=== PATIENT | female | born 1985 | race Caucasian/White ===

== ENCOUNTER 2019-03-09 06:58 | Day surgery (SDC) | payer OTHER ==
[~2019-03-09] VITALS: Ht 160 cm; Wt 81.6 kg
[2019-03-09] MEDS ORDERED: GLYCOPYRROLATE 0.2 MG/ML VIAL ONE (10:38)
[2019-03-09] MEDS ORDERED: NEOSTIGMINE 1:1000 10 MG/10 ML VIAL ONE (10:38)
[2019-03-09] MEDS ORDERED: ONDANSETRON 4 MG/2 ML VIAL ONE (10:38)
[2019-03-09] MEDS ORDERED: PROPOFOL 200 MG/20 ML VIAL IV ONE (10:38)
[2019-03-09] MEDS ORDERED: DEXAMETHASONE 4 MG/ML VIAL ONE (10:38)
[2019-03-09] MEDS ORDERED: LIDOCAINE 2% 100 MG/5 ML SYR IVP ONE (10:38)
[2019-03-09] MEDS ORDERED: SUCCINYLCHOLINE CHLORIDE 200 MG/10 ML VIAL IVP ONE (10:38)
[2019-03-09] MEDS ORDERED: DESFLURANE 240 ML BTL INH ONE (10:38)
[2019-03-09] MEDS ORDERED: KETOROLAC 30 MG/ML VIAL ONE (10:38)
[2019-03-09] MEDS ORDERED: ROCURONIUM 50 MG/5 ML VIAL IV ONE (10:38)
[2019-03-09] MEDS ORDERED: fentaNYL 0.05 MG/ML VIAL ONE (10:46)
[2019-03-09] MEDS ORDERED: MIDAZOLAM 2 MG/2 ML VIAL ONE (10:46)
[2019-03-09] MEDS ORDERED: BUPIVACAINE-MPF/EPI 0.25% 30 ML VIAL INJ ONE (10:52)
[2019-03-09] MEDS ORDERED: HYDROmorphone 1 MG/ML AMP IVP PRN (11:15)
[2019-03-09] MEDS ORDERED: ONDANSETRON 4 MG/2 ML VIAL IVP PRN (11:15)
== END 2019-03-09 13:45 | disposition home or self-care (01) ==
LOC: MDS 06:58 → MMU 06:59 → MDS 13:45
PROVIDERS: ATTEND Obstetrics & Gynecology
DX: Z30.2 Encounter for sterilization (principal); E66.3 Overweight
CPT/HCPCS: 58670; J0330; J1100; J1885; J2001; J2250; J2405; J2704; J2710; J3010; J3490; J7120